=== PATIENT | female | born 1985 | race Caucasian/White ===

== ENCOUNTER 2020-05-28 23:11 | Emergency (ER) | payer BC, OTHER ==
[2020-05-28] MEDS ORDERED: Ondansetron 4 MG Tab.DIS PO ONE (23:12)
[2020-05-28] MEDS ORDERED: Cephalexin 500 MG Cap PO ONE (23:12)
[2020-05-29] MEDS ORDERED: fentaNYL 100 MCG/2 ML SDV IVPUSH ONE (00:18)
[2020-05-29] MEDS ORDERED: GI Cocktail Oral Solution 30 ML PO ONE (00:21)
[2020-05-29 00:46] LABS: CHLORIDE,CL 102 mmol/L (98-107); SODIUM,NA 139 mmol/L (136-145)
--- NOTE | 2020-05-29 01:01 | EDM.PDOC ---
ED HPI GENERAL MEDICAL PROBLEM - General Chief Complaint: Abdominal Pain Stated Complaint: PT SAYS GALLBLADDER ATTACK,PT/ 7 MONTHS Time Seen by Provider: 05/28/20 23:40 Source of Information: Reports: Patient History Limitations: Reports: No Limitations - History of Present Illness INITIAL COMMENTS - FREE TEXT/NARRATIVE: C/o severe epigastric pain, Report 7months . . Pain started after eating soup tonight. No previous similar episodes. Tried Gaviscon at home did not help, mild nausea no vomiting. States f/u OB US next week borderline amniotic fluid level otherwise has been normal PG. Previous high risk with others. OB Dr Gilberto Rodriguez. Due date 09/17. Denies contractions. Has had milder similar symptoms with previous pregnancies. No prior Gallbladder studies. Upper Abdomen Pain Score (Numeric/FACES): 9 - Related Data Allergies Allergy/AdvReac Type Severity Reaction Status Date / Time No Known Allergies Allergy Verified 05/28/20 23:41 Home Meds: Home Meds Calcium Carbonate [Tums] 200 mg PO 05/28/20 [History] Past Medical History - Past Health History Medical/Surgical History: Denies Medical/Surgical History HEENT History: Reports: None Cardiovascular History: Reports: None Respiratory History: Reports: None Gastrointestinal History: Reports: None Genitourinary History: Reports: None [employer] History: Reports: Musculoskeletal History: Reports: None Neurological History: Reports: None Psychiatric History: Reports: None Endocrine/Metabolic History: Reports: None Hematologic History: Reports: None Immunologic History: Reports: None Oncologic (Cancer) History: Reports: None Dermatologic History: Reports: None - Infectious Disease History Infectious Disease History: Reports: None - Past Surgical History Head Surgeries/Procedures: Reports: None Social & Family History - Family History Family Medical History: Noncontributory - Tobacco Use Smoking Status *Q: Never Smoker Second Hand Smoke Exposure: No - Caffeine Use Caffeine Use: Reports: None - Recreational Drug Use Recreational Drug Use: No ED ROS GENERAL - Review of Systems Review Of Systems: Comprehensive ROS is negative, except as noted in HPI. ED EXAM, GI/ABD - Physical Exam Exam: See Below Exam Limited By: No Limitations General Appearance: Alert, Anxious, Mild Distress Eyes: Bilateral: EOMI Ears: Normal External Exam, Normal TMs Nose: Normal Inspection Throat/Mouth: Normal Inspection, Normal Lips Head: Atraumatic, Normocephalic Neck: Normal Inspection, Full Range of Motion Respiratory/Chest: No Respiratory Distress, Lungs Clear, Normal Breath Sounds Cardiovascular: Normal Peripheral Pulses, Regular Rate, Rhythm GI/Abdominal Exam: Normal Bowel Sounds, Soft, Tender (epigastric lateral RUQ). No: Distended, Guarding (Female) Exam: Other (FHT 140-160) Back Exam: Normal Inspection, Full Range of Motion Extremities: Normal Inspection Neurological: Alert, Oriented, Normal Cognition Psychiatric: Normal Affect, Normal Mood Skin Exam: Warm, Dry, Intact, Normal Color Course - Vital Signs Last Recorded V/S: Last Vital Signs Temp 98.7 F 05/29/20 01:55 Pulse 80 05/29/20 01:55 Resp 14 05/29/20 01:55 BP 114/76 05/29/20 01:55 Pulse Ox 100 05/28/20 23:30 - Orders/Labs/Meds Orders: Active Orders 24 hr Category Date Time Status CULTURE URINE [RM] Stat Lab 05/29/20 02:16 Received Labs: Laboratory Tests 05/29/20 05/29/20 05/29/20 Range/Units 00:21 00:21 02:16 WBC 14.8 H (5.0-10.0) 10^3/uL RBC 3.99 L (4.2-5.4) 10^6/uL Hgb 13.0 (12.0-16.0) g/dL Hct 38.0 (37.0-47.0) % MCV 95.2 (80-100) fL MCH 32.6 (27.0-34.0) pg MCHC 34.2 (33.0-35.0) g/dL Plt Count 212 (150-450) 10^3/uL Neut % (Auto) 81.5 H (42.2-75.2) % Lymph % (Auto) 13.4 L (20.5-50.1) % [place] % (Auto) 4.5 (2-8) % Eos % (Auto) 0.5 L (1.0-3.0) % Baso % (Auto) 0.1 (0.0-1.0) % Sodium 139 (136-145) mmol/L Potassium 4.0 (3.5-5.1) mmol/L Chloride 102 (98-107) mmol/L Carbon Dioxide 29 (21-32) mmol/L Anion Gap 12.0 (7-13) mEq/L BUN 8 (7-18) mg/dL Creatinine 0.67 (0.55-1.02) mg/dL Est Cr Clr Drug Dosing 120.47 mL/min Estimated GFR (MDRD) > 60 BUN/Creatinine Ratio 11.9 (No establ ref range) Glucose 94 (74-99) mg/dL Calcium 8.7 (8.5-10.1) mg/dL Total Bilirubin 0.2 (0.2-1.0) mg/dL AST 9 L (15-37) U/L ALT 19 (14-59) U/L Alkaline Phosphatase 68 (46-116) U/L Total Protein 6.3 L (6.4-8.2) g/dL Albumin 2.9 L (3.4-5.0) g/dL Globulin 3.4 Albumin/Globulin Ratio 0.85 Amylase 40 (25-115) U/L Lipase 58 L (73-393) U/L Urine Color Light yellow (YELLOW) Urine Appearance Cloudy (CLEAR) Urine pH 8.5 (5.0-9.0) Ur Specific Hope 1.020 (1.005-1.030) Urine Protein Negative (NEGATIVE) Urine Glucose (UA) Negative (NEGATIVE) Urine Ketones Negative (NEGATIVE) Urine Occult Blood Trace-intact H (NEGATIVE) Urine Nitrite Negative (NEGATIVE) Urine Bilirubin Negative (NEGATIVE) Urine Urobilinogen 0.2 (0.2-1.0) mg/dL Ur Leukocyte Esterase Small H (NEGATIVE) Urine RBC 0-5 /HPF Urine WBC 10-20 H (0-5/HPF) /HPF Ur Epithelial Cells Few (NOT SEEN) /HPF Amorphous Sediment Many H (NOT SEEN) /HPF Urine Bacteria Few (0-FEW/HPF) /HPF Urine Mucus Rare (NOT SEEN) /LPF Meds: Medications Discontinued Medications Generic Name Dose Route Start Last Admin Trade Name Freq PRN Reason Stop Dose Admin Al Hydroxide/Mg Hydroxide 30 ml 05/29/20 00:21 05/29/20 00:26 Gi Cocktail PO 05/29/20 00:22 30 ml ONETIME ONE Administration Al Hydroxide/Mg Hydroxide 30 ml 05/29/20 01:07 Mag-Al Plus PO ONETIME PRN Dyspepsia Cephalexin Confirm 05/29/20 04:13 Keflex Administered 05/29/20 04:14 Dose 500 mg .ROUTE .STK-MED ONE Famotidine 20 mg 05/29/20 02:08 05/29/20 04:04 Pepcid PO 05/29/20 02:09 Not Given ONETIME ONE Famotidine 20 mg 05/29/20 02:18 05/29/20 02:45 Pepcid IVPUSH 05/29/20 02:19 20 mg ONETIME ONE Administration Fentanyl 25 mcg 05/29/20 00:18 05/29/20 03:58 Sublimaze IVPUSH 05/29/20 00:19 Not Given ONETIME ONE Sodium Chloride 1,000 mls @ 999 mls/hr 05/29/20 02:19 05/29/20 03:52 Normal Saline IV 05/29/20 03:19 Infused .BOLUS ONE Infusion Ondansetron HCl 4 mg 05/29/20 02:08 05/29/20 04:04 Zofran Odt PO 05/29/20 02:09 Not Given ONETIME ONE Ondansetron HCl 4 mg 05/29/20 02:18 05/29/20 02:45 Zofran IVPUSH 05/29/20 02:19 4 mg ONETIME ONE Administration Ondansetron HCl Confirm 05/29/20 04:13 Zofran Odt Administered 05/29/20 04:14 Dose 8 mg .ROUTE .STK-MED ONE - Re-Assessments/Exams Free Text/Narrative Re-Assessment/Exam: 05/29/20 01:12 Epigastric discomfort tolerable after GI cocktail. Noting discomfort but improved. Departure - Departure Time of Disposition: 04:06 Disposition: Home, Self-Care 01 Condition: Good Clinical Impression: Epigastric pain, Intrauterine - Discharge Information *PRESCRIPTION DRUG MONITORING PROGRAM REVIEWED*: No *COPY OF PRESCRIPTION DRUG MONITORING REPORT IN PATIENT NICOLASA: No Instructions: Heartburn During , [id number] Referrals: PCP,None [Primary Care Provider] - Forms: ED Department Discharge Additional Instructions: no/ low fat diet start clear liquid advance as tolerated follow up with OB this week Urgent follow up increased pain or vomiting and unable to tolerate fluids keflex 500mg one twice daily x 7 days Sepsis Event Note (ED) - Evaluation Sepsis Screening Result: No Definite Risk - Focused Exam Vital Signs: Vital Signs Temp Pulse Resp BP Pulse Ox 10/10/20 01:55 98.7 F 80 14 114/76 05/28/20 23:30 97.9 F 87 20 131/72 100 - My Orders Last 24 Hours: My Active Orders 05/29/20 02:16 CULTURE URINE [] Stat - Assessment/Plan Last 24 Hours: My Active Orders 05/29/20 02:16 CULTURE URINE [] Stat
[2020-05-29] MEDS ORDERED: Aluminum Hydroxide/Magnesium Hydroxide/Simethicone Susp 30 ML Cup PO PRN (01:07)
[2020-05-29] MEDS ORDERED: Famotidine 20 MG Tab PO ONE (02:08)
[2020-05-29] MEDS ORDERED: Ondansetron 4 MG Tab.DIS PO ONE (02:08)
[2020-05-29] MEDS ORDERED: Ondansetron 4 MG/2 ML SDV IVPUSH ONE (02:18)
[2020-05-29] MEDS ORDERED: Famotidine 20 MG/2 ML SDV IVPUSH ONE (02:18)
[2020-05-29] MEDS ORDERED: Sodium Chloride 0.9% 1,000 ML IV ONE (02:19)
[2020-05-29] MEDS ORDERED: Ondansetron 4 MG Tab.DIS ONE (04:13)
[2020-05-29] MEDS ORDERED: Cephalexin 500 MG Cap ONE (04:13)
== END 2020-05-29 04:15 | disposition home or self-care (01) ==
LOC: DL.ED 23:11
DX: O99.891 Other specified diseases and conditions complicating pregnancy (principal); R10.13 Epigastric pain
CPT/HCPCS: 36415; 80053; 81001; 82150; 83690; 85025; 87086; 96374; 96375; 99284; A9270; J2405; J3490; J7030